=== PATIENT | female | born 1955 | race Caucasian/White ===

== ENCOUNTER 2024-04-24 10:05 | Outpatient (RCR) | payer MEDICARE, OTHER, SELFPAY | END 2024-06-30 08:29 | disposition home or self-care (01) | PROVIDERS: PCP Family Medicine; Visit Provider Physician Assistant | DX: M43.16 Spondylolisthesis, lumbar region (principal); Z51.89 Encounter for other specified aftercare | CPT/HCPCS: 97110; 97161 ==

== ENCOUNTER 2024-05-20 07:26 | Outpatient (CLI) | payer MEDICARE, OTHER, SELFPAY | END 2024-05-20 07:27 | disposition home or self-care (01) | LOC: INJ CL 07:28 | PROVIDERS: PCP Family Medicine; Visit Provider Family Medicine | DX: M48.062 Spinal stenosis, lumbar region with neurogenic claudication (principal); M43.16 Spondylolisthesis, lumbar region | CPT/HCPCS: 64483; J1100; Q9966 ==

== ENCOUNTER 2024-07-25 08:50 | Outpatient (CLI) | payer MEDICARE, OTHER, SELFPAY | END 2024-07-25 08:51 | disposition home or self-care (01) | LOC: INJ CL 08:52 | PROVIDERS: PCP Family Medicine; Visit Provider Family Medicine | DX: M54.16 Radiculopathy, lumbar region (principal); M51.369 Other intervertebral disc degeneration, lumbar region without mention of lumbar back pain or lower extremity pain | CPT/HCPCS: 64483; J1100; Q9966 ==

== ENCOUNTER 2025-02-25 09:15 | Outpatient (RCR) | payer MEDICARE, OTHER, SELFPAY | END 2025-02-25 13:51 | disposition home or self-care (01) | PROVIDERS: PCP Family Medicine; Visit Provider Family Medicine | DX: M48.062 Spinal stenosis, lumbar region with neurogenic claudication (principal); Z98.1 Arthrodesis status; Z51.89 Encounter for other specified aftercare | CPT/HCPCS: 97110; 97162; 97535 ==